=== PATIENT | male | born 1935 | race Caucasian/White ===

== ENCOUNTER → 2016-08-22 | Outpatient (CLI) | payer MEDICARE ==
[~2016-08-22] MED LIST: AEROBID INHALER7 GM IH; ASPIR-LOW81 MG PO; ASPIR-LOX325 MG PO; ASPIRIN 32325 MG/TAB PO; ASPIRIN 81M81 MG/TA2 PO; ASPIRIN E.C. 8181 MG PO; BYSTOLIC PO; CARDIZEM CD 30300 MG PO; CARDIZEM CD300 MG PO; CEPHALEXIN500 M1 PO; CIPRO 250MG TA250 MG; CIPRO 250MG TA250 MG PO; COLACE 100100 MG/CAP PO; DETROL LA4 PO; DITROPAN XL10 MG PO; DITROPAN XL15 MG PO; FEROSUL325 MG PO; IMIPRAMINE PO; IMPRAMINE PO; LANTUS100 U/ML SC; LANTUS100 U/ML SQ; LASIX 40MG TABL40 MG PO; LISINOPRIL PO; LOPRESSOR 225 MG/TAB PO; LOPRESSOR100 MG PO; MULTIPLE VITAMI1 CAP PO; MULTIPLE VITAMI1 TAB PO; MVI; MVI PO; NORCO 325 MG-51 TAB PO; NOVLOG SC; NOVOLOG 100U100 U/M1 SC; NOVOLOG 100U100 U/M1 SQ; NOVOLOG 100U100 U/ML SQ; PERCOCET 325 MG1 TA2 PO; PLAVIX 75MG TAB75 MG PO; PRILOSEC 20MG20 MG PO; PRINIVIL20 MG PO; REMERON 15M15 MG/TA1 PO; SEROQUEL 2525 MG/TAB PO; SEROQUEL50 MG PO; TAZTIA XT300 MG PO; THERAGRAN1 TAB PO; TIAZAC300 MG PO; TOFRANIL50 MG PO; TOPROL XL 50MG50 MG PO; TYLENOL 325MG325 MG PO; VITAMIN C500 MG PO; ZANTAC 150150 MG PO; ZANTAC 150MG T150 MG PO; ZESTRIL 20MG TA20 MG PO; ZESTRIL30 MG PO; ZESTRIL40 MG PO; ZOCOR 20MG20 MG PO; ZOCOR 40MG40 MG PO; ZOCOR40 MG PO; [UNRECOGNIZED DRUG - OTHER]
== END ==
LOC: COL.RAD 09:54
PROVIDERS: Internal Medicine Interventional Cardiology
DX: I65.21 Occlusion and stenosis of right carotid artery (principal); Z95.1 Presence of aortocoronary bypass graft; I70.0 Atherosclerosis of aorta
CPT/HCPCS: Q9967

== ENCOUNTER 2018-04-29 12:29 | Emergency (ER) | payer MEDICARE ==
[~2018-04-29] VITALS: Ht 172.7 cm; Wt 73.2 kg
[~2018-04-29 12:29] MED LIST changes: +BASAGLAR K100 UNIT/1 SQ; +CARTIA XT300 MG PO; +IMDUR 30MG30 MG/TAB PO; +LIPITOR 80MG80 MG PO; +LOPRESSOR 550 MG/TAB PO; +LOPRESSOR HCT 21 TA1 PO; +MUCINEX DM 30 M1 TE1 PO; +OMNICEF 300MG300 MG PO; +PROTONIX20 MG PO; +VENTOLIN0.09 MG IH
[2018-04-29 12:41] VITALS: BP 161/86; TEMP 98.4
[2018-04-29] MEDS ORDERED: CEPHALEXIN500 M1 PO (14:43)
[2018-04-29 14:59] VITALS: PULSE 74
== END 2018-04-29 14:59 | disposition home or self-care (01) ==
LOC: COL.ER 12:29
DX: S61.412A Laceration without foreign body of left hand, initial encounter (principal); E11.9 Type 2 diabetes mellitus without complications; I10 Essential (primary) hypertension; W26.8XXA Contact with other sharp object(s), not elsewhere classified, initial encounter; Y92.009 Unspecified place in unspecified non-institutional (private) residence as the place of occurrence of the external cause

== ENCOUNTER 2018-05-06 10:13 | Emergency (ER) | payer MEDICARE ==
[2018-05-06 10:17] VITALS: BP 146/73; PULSE 75; TEMP 96.6
== END 2018-05-06 10:23 | disposition home or self-care (01) ==
LOC: COL.ER 10:13
DX: S61.412D Laceration without foreign body of left hand, subsequent encounter (principal); Z79.82 Long term (current) use of aspirin; Z79.4 Long term (current) use of insulin

== ENCOUNTER → 2019-01-08 | Outpatient (CLI) | payer MEDICARE | LOC: COL.PUL 12-22 11:20 | DX: R05 Cough (principal) ==

== ENCOUNTER 2019-02-19 08:47 | Day surgery (SDC) | payer MEDICARE ==
[~2019-02-19] VITALS: Ht 172.8 cm; Wt 71.9 kg
[2019-02-19] VITALS (10 sets, daily range): BP systolic 126–180; BP diastolic 68–101; PULSE 64–76; TEMP 98
[2019-02-19 09:46] LABS: HEMATOCRIT 42.8 % (42.0-52.0); HEMOGLOBIN 14.1 g/dl (13.5-18.0); MEAN CELL VOLUME 98 fl (80.0-100.0); MEAN CORPUSCULAR HEMOGLOBIN 32 pg (27.0-31.0); MEAN CORPUSCULAR HGB CONC 33 g/dl (33.0-37.0); MEAN PLATELET VOLUME 9.5 fl (7.4-10.4); PLATELET COUNT 121 K/mm3 (130-400); RED BLOOD COUNT 4.36 M/mm3 (4.20-5.60); REDCELL DISTRIBUTION WIDTH-CV 13.4 % (11.5-14.5)
[2019-02-19 09:51] LABS: CALCIUM 9.1 mg/dL (8.4-10.2); CREATININE, serum 0.97 (0.66-1.25); POTASSIUM 4.3 mmol/L (3.4-5.0)
[2019-02-19 09:53] LABS: INR 1.2 (0.8-3.0); PROTHROMBIN TIME 14.1 SECONDS (9.7-12.8)
[2019-02-19] MEDS ORDERED: LOPRESSOR100 MG PO (10:04)
[2019-02-19] MEDS ORDERED: NOVOLIN 70100 UNIT/2 SQ ×2 (10:05→10:06)
[2019-02-19] MEDS ORDERED: NOVOLOG FLEX100 U/ML SQ ×3 (10:06→10:10)
[2019-02-19] MEDS ORDERED: ZESTRIL 20MG TA20 MG PO (10:10)
[2019-02-19] MEDS ORDERED: RANEXA 500MG T500 MG PO (10:12)
--- NOTE | 2019-02-19 10:22 | NUR ---
SEE [facility]ERE[facility] FOR ALL MEDICATION ADMINISTRATION TIMES AND INTRA/POST SEDATION ASSESSMENT
--- NOTE | 2019-02-19 11:45 | NUR ---
Back from director [employer] by bed. Alert and oriented. Right wrist Tband with 11 cc air, good pulses and cap refill. < 3 secs noted. Ns at 500 ml/he started per order by dr. garcía
--- NOTE | 2019-02-19 14:00 | NUR ---
Tband deflated 11 cc over 30 minutes.
--- NOTE | 2019-02-19 14:25 | NUR ---
Discontinued IV intact. Discontinued Tband and applied pressure dressing.
--- NOTE | 2019-02-19 14:30 | NUR ---
Discharge instructions given. Transferred to private car by kaykay
== END 2019-02-19 14:35 | disposition home or self-care (01) ==
LOC: COL.CAR 08:47
PROVIDERS: Internal Medicine Interventional Cardiology
DX: I25.10 Atherosclerotic heart disease of native coronary artery without angina pectoris (principal); I73.9 Peripheral vascular disease, unspecified; E11.9 Type 2 diabetes mellitus without complications; K21.9 Gastro-esophageal reflux disease without esophagitis; E78.5 Hyperlipidemia, unspecified; I10 Essential (primary) hypertension; Z95.1 Presence of aortocoronary bypass graft; Z79.82 Long term (current) use of aspirin; Z79.4 Long term (current) use of insulin; Z85.46 Personal history of malignant neoplasm of prostate
CPT/HCPCS: J1644; J2250; J3010; J7030

== ENCOUNTER → 2020-04-03 | Outpatient (CLI) | payer MEDICARE ==
[~2020-04-03] MED LIST changes: +NOVOLIN 70100 UNIT/2 SQ; +NOVOLOG FLEX100 U/ML SQ; +RANEXA 500MG T500 MG PO
== END ==
LOC: COL.RAD 07:44
DX: I65.21 Occlusion and stenosis of right carotid artery (principal); Z98.62 Peripheral vascular angioplasty status; Z95.828 Presence of other vascular implants and grafts
CPT/HCPCS: Q9967

== ENCOUNTER 2021-12-08 23:07 | Emergency (ER) | payer MEDICARE ==
[~2021-12-08] VITALS: Ht 175.3 cm; Wt 73.6 kg
[2021-12-08 23:08] VITALS: TEMP 98.2
[2021-12-08] MEDS ORDERED: NORCO 325 MG-51 TAB PO ×2 (23:42)
[2021-12-09] MEDS ORDERED: NORCO 325 MG-51 TAB PO (00:14)
[2021-12-09 00:25] VITALS: BP 138/102; PULSE 85
== END 2021-12-09 00:25 | disposition home or self-care (01) ==
LOC: COL.ER 23:07
DX: S42.211A Unspecified displaced fracture of surgical neck of right humerus, initial encounter for closed fracture (principal); W01.0XXA Fall on same level from slipping, tripping and stumbling without subsequent striking against object, initial encounter

== ENCOUNTER → 2022-01-09 | Outpatient (CLI) | payer MEDICARE | LOC: COL.RAD 10:44 | DX: S42.301A Unspecified fracture of shaft of humerus, right arm, initial encounter for closed fracture (principal) ==